=== PATIENT | male | born 1960 | race Two or more races ===

== ENCOUNTER 2018-11-13 09:51 | Emergency (ER) | payer SELFPAY ==
[~2018-11-13] VITALS: Ht 162.6 cm; Wt 86.2 kg
[2018-11-13 09:56] VITALS: BP 160/86
[2018-11-13] MEDS ORDERED: NAPROXEN 500 MG TABLET PO STA (10:05)
[2018-11-13] MEDS ORDERED: HYDROcodone/APAP 5/325MG 1 TAB TABLET PO ONE (10:15)
--- NOTE | 2018-11-13 10:33 | RAD ---
EXAM: Left knee, 3 views. HISTORY: Pain. COMPARISON: None. FINDINGS: 3 views of the left knee are obtained. There is medial compartment joint space narrowing and subchondral sclerosis. There is moderate tricompartmental spurring. There is a chronic fragmented osteophyte or enthesophyte along the superior patella. There is a trace joint effusion. There are small suspected ossicles adjacent to the fibular head and medial condyle. IMPRESSION: 1. Moderate medial compartment predominant osteoarthritis with trace effusion. 2. No acute osseous finding. Electronically signed by: Elizabeth Pan MD (11/13/2018 10:30 AM) [id number]
--- NOTE | 2018-11-13 10:59 | PHYS DOC ---
Past Medical History Past Medical History: No Pertinent History (JESSIE GOULD APRN) Past Surgical History: No Surgical History (JESSIE GOULD APRN) Alcohol Use: Occasionally Drug Use: None (JESSIE GOULD APRN) Adult General Chief Complaint Chief Complaint: LOWER EXT PAIN HPI HPI Patient is a 58 year old male with no significant medical history who presents to the ED today complaining of moderate throbbing and constant bilateral knee pain that has been going on for one week. Patient denies any known injury. He states most of the pain is worse on weight bearing. He states he called his doctor's office and was given an appointment around December 19 2018. He states he could not wait until then. He states he has been trying [id number] remedies with no relief. (JESSIE GOULD APRN) Review of Systems Review of Systems Constitutional: Denies fever or chills [] Musculoskeletal: Reports bilateral knee pain Integument: Denies rash or skin lesions [] Neurologic: Denies headache, focal weakness or sensory changes [] All other systems were reviewed and found to be within normal limits, except as documented in this note. (JESSIE GOULD APRN) Current Medications Current Medications Current Medications Medications (Trade) Dose Ordered Sig/Maye Start Time Stop Time Status Last Admin Dose Admin Acetaminophen/ Hydrocodone Bitart (Lortab 5/325) 2 tab 1X ONCE 11/13/18 10:15 11/13/18 10:16 DC 11/13/18 10:14 2 TAB Naproxen (Naprosyn) 500 mg 1X STAT 11/13/18 10:05 11/13/18 10:07 DC 11/13/18 10:14 500 MG (ALISE MARTINEZ MD) Allergies Allergies Allergies Coded Allergies Type Severity Reaction Last Updated Verified No Known Drug Allergies 11/13/18 No (ALISE MARTINEZ MD) Physical Exam Physical Exam Constitutional: Well developed, well nourished, no acute distress, non-toxic appearance. [] Skin: Warm, dry, no erythema, no rash. [] Back: No tenderness, no CVA tenderness. [] Extremities: Bilateral knees with mild soft tissue swelling, tenderness diffusely throughout the knee. Full active range of motion to bilateral knees, negative Rj sign and negative Juan's sign negative anterior-posterior drawer sign. +2 bilateral pedal pulses. Cap refill less than 2 seconds bilateral lower extremities. Neurologic: Alert and oriented X 3, normal motor function, normal sensory function, no focal deficits noted. [] Psychologic: Affect normal, judgement normal, mood normal. [] (JESSIE GOULD APRN) Current Patient Data Vital Signs Vital Signs Date Time Temp Pulse Resp B/P (MAP) Pulse Ox O2 Delivery O2 Flow Rate FiO2 11/13/18 09:56 98.7 92 18 160/86 (110) 98 Room Air 98.7 (ALISE MARTINEZ MD) EKG EKG [] (JESSIE GOULD APRN) Radiology/Procedures Radiology/Procedures []PROCEDURE: KNEE RIGHT 4V Examination: KNEE RIGHT 4V History: PATIENT IS COMPLAINING OF A LOT OF PAIN IN HIS RIGHT KNEE. SAID BOTH KNEES HAVE BEEN HURTING HIM. Comparison/Correlation: None Findings: Total 4 images of the right knee were obtained including frontal view, oblique view, lateral view and patellar sunrise view. Significant medial compartment narrowing is present. Varus deformity is mild. Tricompartmental spurring is present. No fracture or bony destruction. Small knee joint effusion is present. Bony densities about the patella which appears represent multipartite patella noted. Impression: Significant degenerative changes of the medial compartment with mild varices deformity. Tricompartmental spurring. Electronically signed by: Jaziel oMrales MD (11/13/2018 11:08 AM) [id number] DICTATED and SIGNED BY: JAZIEL MORALES MD DATE: 11/13/18 1101 PROCEDURE: KNEE LEFT 4V EXAM: Left knee, 3 views. HISTORY: Pain. COMPARISON: None. FINDINGS: 3 views of the left knee are obtained. There is medial compartment joint space narrowing and subchondral sclerosis. There is moderate tricompartmental spurring. There is a chronic fragmented osteophyte or enthesophyte along the superior patella. There is a trace joint effusion. There are small suspected ossicles adjacent to the fibular head and medial condyle. IMPRESSION: 1. Moderate medial compartment predominant osteoarthritis with trace effusion. 2. No acute osseous finding. Electronically signed by: Elizabeth Warner MD (11/13/2018 10:30 AM) [id number] DICTATED and SIGNED BY: ELIZABETH WARNER MD DATE: 11/13/18 1029 (JESSIE GOULD APRN) Course & Med Decision Making Course & Med Decision Making Pertinent Labs and Imaging studies reviewed. (See chart for details) This is a 58-year-old male patient presenting to the ED today with bilateral knee pain no known injury. Bilateral knee x-rays interpreted by radiologist were noted for DJD otherwise no acute findings. Patient was discharged with diclofenac. Also discharged with Medrol Dosepak. Ice elevation encouraged. Provided orthopedic doctor for follow-up with. (JESSIE GOULD APRN) Course & Med Decision Making Staff Physician Addendum: I was working in the ER during the course of this patient's visit. I was available for consultation as needed, but I was not directly involved in the care of this patient. (ALISE MARTINEZ MD) Dragon Disclaimer Dragon Disclaimer This electronic medical record was generated, in whole or in part, using a voice recognition dictation system. (JESSIE GOULD APRN) Departure Departure Impression: Primary Impression: Right knee DJD Additional Impression: Left knee DJD Disposition: 01 HOME, SELF-CARE Condition: STABLE Referrals: NO PCP (PCP) JUANA SOUZA II, MD Follow up in 1-2 weeks Patient Instructions: Arthritis, Degenerative-Brief Additional Instructions: You were evaluated in the emergency room for bilateral knee pain and arthritis. Take the prescribed medications as ordered. You can follow-up with your own doctor or the provided orthopedic doctor in 1-2 weeks. Ice and elevate the affected areas. Scripts Methylprednisolone (MEDROL) 4 Mg Tab.ds.pk 1 PKG PO UD, #1 PKG Prov: JESSIE GOULD APRN 11/13/18 Diclofenac Sodium (DICLOFENAC SODIUM) 50 Mg Tablet.dr 1 TAB PO BID, #20 TAB 0 Refills Prov: JESSIE GOULD APRN 11/13/18 Problem Qualifiers Primary Impression: Right knee DJD Osteoarthritis type: primary Qualified Codes: M17.11 - Unilateral primary osteoarthritis, right knee Additional Impression: Left knee DJD Osteoarthritis type: primary Qualified Codes: M17.12 - Unilateral primary osteoarthritis, left knee JESSIE GOULD APRN Nov 13, 2018 10:59 ALISE MARTINEZ MD Nov 13, 2018 12:18
--- NOTE | 2018-11-13 11:11 | RAD ---
Examination: KNEE RIGHT 4V History: PATIENT IS COMPLAINING OF A LOT OF PAIN IN HIS RIGHT KNEE. SAID BOTH KNEES HAVE BEEN HURTING HIM. Comparison/Correlation: None Findings: Total 4 images of the right knee were obtained including frontal view, oblique view, lateral view and patellar sunrise view. Significant medial compartment narrowing is present. Varus deformity is mild. Tricompartmental spurring is present. No fracture or bony destruction. Small knee joint effusion is present. Bony densities about the patella which appears represent multipartite patella noted. Impression: Significant degenerative changes of the medial compartment with mild varices deformity. Tricompartmental spurring. Electronically signed by: Jaziel Danielson MD (11/13/2018 11:08 AM) [id number]
[2018-11-13] MEDS ORDERED: DICL50TA4 PO (11:20)
[2018-11-13] MEDS ORDERED: METH4TAB2 PO (11:20)
== END 2018-11-13 11:36 | disposition home or self-care (01) ==
LOC: ER 09:51
DX: M17.0 Bilateral primary osteoarthritis of knee (principal)
CPT/HCPCS: 73564; 99283

== ENCOUNTER → 2019-06-17 | Outpatient (CLI) | payer OTHER ==
[~2019-06-17] MED LIST: DICL50TA4 PO; METH4TAB2 PO
--- NOTE | 2019-06-17 16:50 | RAD ---
MR of the right knee HISTORY: Right knee pain. TECHNIQUE: Routine multiplanar sequences are obtained. FINDINGS: Severe degenerative medial meniscal tear. No evidence of lateral meniscal tear. Anterior cruciate ligament not visualized, suspect chronic tear. Posterior cruciate ligament is somewhat thick and heterogeneous compatible with scarring or degeneration without full-thickness tear. Medial collateral ligament is intact. Iliotibial band unremarkable. Fibular collateral ligament and biceps femoris tendon are intact. Popliteus tendon is thick and heterogeneous likely degenerative. Extensor mechanism intact. Moderate joint effusion with synovitis. Small Garcia's cyst with internal septation or scarring. 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 Findings could also indicate an old patellar fracture but that is considered less likely. Degenerative changes of the patellar cartilage particularly in the region of the superolateral aspect. Moderate chondromalacia of the femoral trochlea. Severe cartilage loss at the medial joint compartment with subchondral bone exposure. Flattening and depression of the subchondral bone particularly the medial tibial plateau. Mild degenerative change at the lateral joint compartment. No acute fracture. No aggressive bone destruction. Subchondral marrow change at the weightbearing medial femoral condyle is likely degenerative in etiology. IMPRESSION: 1. Medial meniscal tear. 2. DJD, severe at the medial joint compartment. 3. Nonvisualized anterior cruciate ligament compatible with a chronic rupture. 4. Moderate joint effusion with synovitis. Small Garcia's cyst with internal septa or scarring. 5. 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 This could indicate chronic instability at the synchondrosis or less likely prior fracture. Electronically signed by: Asa Moya MD (06/17/2019 4:48 PM) [facility]
== END | disposition home or self-care (01) ==
LOC: EDSEX → MRI 13:01
PROVIDERS: ATTEND Family Medicine
DX: S83.241A Other tear of medial meniscus, current injury, right knee, initial encounter (principal); M25.461 Effusion, right knee; M94.261 Chondromalacia, right knee; M17.11 Unilateral primary osteoarthritis, right knee; M71.21 Synovial cyst of popliteal space [Baker], right knee; M65.88 Other synovitis and tenosynovitis, other site; X58.XXXA Exposure to other specified factors, initial encounter; Y93.89 Activity, other specified; Y92.89 Other specified places as the place of occurrence of the external cause; Y99.8 Other external cause status
CPT/HCPCS: 73721

== ENCOUNTER 2021-03-28 13:50 | Emergency (ER) | payer SELFPAY ==
[~2021-03-28] VITALS: Ht 154.9 cm; Wt 91.0 kg
[2021-03-28 19:11] VITALS: BP 150/82
--- NOTE | 2021-03-28 20:50 | PHYS DOC ---
Past Medical History Past Medical History: Arthritis Past Surgical History: No Surgical History Smoking Status: Current Every Day Smoker Alcohol Use: Rarely Drug Use: None General Adult EDM: Chief Complaint: HAND PROBLEM HPI: HPI: Patient is a 60 year old male who presents with for 12 years he has had left t humb index and middle finger numbness and when he touches the bottom part of the palm mid palm of his hand it is painful. He states that then 2 years ago the right hand started and it was the same fingers. He states that he was seen by Doctor and they said it had to do with his tendons. Patient states he has no insurance and he is illegal and cannot apply for Medicare or Medicaid or state insurance. He states that he has been waiting a year for Shauna to call him back. He states he has been calling every week but gets no answers. Patient has no pain at this time its only numbness in his fingers. 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 History is arthritis and a current smoker. Review of Systems: Review of Systems: Constitutional: Denies fever or chills. [] Eyes: Denies change in visual acuity. [] HENT: Denies nasal congestion or sore throat. [] Respiratory: Denies cough or shortness of breath. [] Cardiovascular: Denies chest pain or edema. [] GI: Denies abdominal pain, nausea, vomiting, bloody stools or diarrhea. [] : Denies dysuria. [] Musculoskeletal: Denies back pain or joint pain. +palm tenderness[] Integument: Denies rash. [] Neurologic: Denies headache, focal weakness or +Bilateral finger sensory changes. [] Endocrine: Denies polyuria or polydipsia. [] Lymphatic: Denies swollen glands. [] Psychiatric: Denies depression or anxiety. [] Heart Score: C/O Chest Pain: No Risk Factors: Risk Factors: DM, Current or recent (<one month) smoker, HTN, HLP, family history of CAD, obesity. Risk Scores: Score 0 - 3: 2.5% MACE over next 6 weeks - Discharge Home Score 4 - 6: 20.3% MACE over next 6 weeks - Admit for Clinical Observation Score 7 - 10: 72.7% MACE over next 6 weeks - Early Invasive Strategies Allergies: Allergies: Allergies Coded Allergies Type Severity Reaction Last Updated Verified No Known Drug Allergies 2/14/19 No Physical Exam: PE: Constitutional: Well developed, well nourished, no acute distress, non-toxic appearance. [] HENT: Normocephalic, atraumatic, bilateral external ears normal, oropharynx moist, no oral exudates, nose normal. [] Eyes: PERRLA, EOMI, conjunctiva normal, no discharge. [] Neck: Normal range of motion, no tenderness, supple, no stridor. [] Cardiovascular:Heart rate regular rhythm, no murmur [] Lungs & Thorax: Bilateral breath sounds clear to auscultation [] Abdomen: Bowel sounds normal, soft, no tenderness, no masses, no pulsatile masses. [] Skin: Warm, dry, no erythema, no rash. [] Back: No tenderness, no CVA tenderness. [] Extremities: Bilateral posterior palm tapping tenderness, no cyanosis, no clubbing, ROM intact, no edema. [] Neurologic: Alert and oriented X 3, normal motor function, decreased sensory function in bilateral thumbs, index and middle fingers, no focal deficits noted. [] Psychologic: Affect normal, judgement normal, mood normal. [] Current Patient Data: Vital Signs: Vital Signs Date Time Temp Pulse Resp B/P (MAP) Pulse Ox O2 Delivery O2 Flow Rate FiO2 03/28/21 19:11 97.7 63 20 150/82 (104) 98 Room Air 97.7 EKG: EKG: [] Radiology/Procedures: Radiology/Procedures: [] Course & Med Decision Making: Course & Med Decision Making Pertinent Labs and Imaging studies reviewed. (See chart for details) See HPI. Alert and oriented x4. Ambulatory with a cane and steady. Monegasque- speaking and daughters in the room speaking Georgian to interpret. 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 He has full range of motion of all of his finger joints. No joint laxities. Skin pink warm and dry. No swelling. Radial pulses strong and present. Cap refill less than 2 seconds. Skin pink warm and dry. Positive Tinel's sign. Patient is given resources to follow-up with a primary care or orthopedic doctor. Patient to take ibuprofen for his pain. [] Saulon Disclaimer: Yann Disclaimer: This electronic medical record was generated, in whole or in part, using a voice recognition dictation system. Departure Departure Impression: Primary Impression: Carpal tunnel syndrome of right wrist Additional Impression: Carpal tunnel syndrome of left wrist Disposition: HOME / SELF CARE / HOMELESS Condition: STABLE Referrals: NATALIE CHAPIN JR, MD (PCP) HINA BERNARD MD Patient Instructions: Carpal Tunnel Syndrome-SportsMed Additional Instructions: FOLLOW UP WITH A PRIMARY CARE PHYSICIAN OR ORTHOPEDIC DOCTOR. LENNIE BURGOS CHANNEL CEMENTER [employer]SOLE MACHINE Mar 28, 2021 20:50
== END 2021-03-28 20:56 | disposition home or self-care (01) ==
LOC: ER 13:50
DX: G56.03 Carpal tunnel syndrome, bilateral upper limbs (principal); M19.90 Unspecified osteoarthritis, unspecified site; F17.200 Nicotine dependence, unspecified, uncomplicated
CPT/HCPCS: 99282

== ENCOUNTER → 2021-10-02 | Outpatient (CLI) | payer OTHER ==
--- NOTE | 2021-10-02 16:01 | RAD ---
Bilateral lower extremity venous duplex study 10/02/2021 3:20 PM Clinical History: Reason: Bilateral lower extremity edema and pain. Comparison: None Technique: Using a combination of real time ultrasound imaging and color-flow and pulse Doppler imagi ng techniques along with graded compression and augmentation, duplex evaluation of the deep venous sy stem of the both lower extremities was performed. Multiple images were obtained. Findings: There is no sonographic evidence of deep venous thrombosis involving the visualized deep ve nous structures of either lower extremity. Impression: No evidence of deep venous thrombosis involving either lower extremity Electronically signed by: Niels Ellison MD (10/02/2021 3:59 PM) [id number]
== END ==
LOC: US 15:18
PROVIDERS: ATTEND Physician Assistant Medical
DX: M79.662 Pain in left lower leg (principal); R60.0 Localized edema; R79.89 Other specified abnormal findings of blood chemistry
CPT/HCPCS: 93970